=== PATIENT | female | born 2000 | race American Indian/Alaskan Native ===

== ENCOUNTER 2020-04-07 09:46 | Inpatient (IN) | payer OTHER ==
[2020-04-07] MEDS ORDERED: NalbUPHINE 10 MG/1 ML INJ IV PRN (10:34)
[2020-04-07] MEDS ORDERED: PROMETHAZINE 25 MG TAB PO PRN (10:34)
[2020-04-07] MEDS ORDERED: NALOXONE 0.4 MG/1 ML INJ IV PRN ×2 (10:34→17:15)
[2020-04-07] MEDS ORDERED: ONDANSETRON 4 MG/2 ML INJ IV PRN (10:34)
[2020-04-07] MEDS ORDERED: PROMETHAZINE 25 MG RECT SUPP PR PRN (10:34)
[2020-04-07] MEDS ORDERED: diphenhydrAMINE 50 MG/ML VIAL IV PRN (10:34)
[2020-04-07] MEDS ORDERED: HYDROmorphone 1 MG/1 ML INJ IV PRN (10:34)
--- NOTE | 2020-04-07 10:35 | Anesthesia Day of Surgery ---
Anesthesia Day of Surgery - Day of Surgery Patient Examined: Yes Patient H&P Reviewed: Yes Patient is NPO: Yes Beta Blockers: No Cardiac Clearance: No Pulmonary Clearance: No Davis's Test: N/A
--- NOTE | 2020-04-07 10:36 | Anesthesia Consultation ---
Anesthesia Consult and Med Hx Date of service: 04/07/20 - Airway Anesthetic Teeth Evaluation: Good ROM Head & Neck: Adequate Mental/Hyoid Distance: Adequate Mallampati Class: Class II Intubation Access Assessment: Probably Good - Pulmonary Exam CTA: Yes - Cardiac Exam Cardiac Exam: RRR - Pre-Operative Health Status ASA Pre-Surgery Classification: ASA2 Proposed Anesthetic Plan: Spinal Nerve Block: TAP - Pulmonary Hx Smoking: No Hx Sleep Apnea: No - Cardiovascular System Hx Hypertension: No Hx Heart Attack/AMI: No Hx Angina: No - Gastrointestinal Hx Gastroesophageal Reflux Disease: No - Endocrine Hx Insulin Dependent Diabetes: No Hx Non-Insulin Dependent Diabetes: No - Other Systems Hx Alcohol Use: No Hx Substance Use: No
[2020-04-07] MEDS ORDERED: BUPIVACAINE /DEX-WATER 0.75% (2 ML) AMPULE INFILTRATI ONE (10:38)
[2020-04-07] MEDS ORDERED: BUPIVACAINE/PF (0.5%) 5 MG/1 ML 30 ML VIAL INFILTRATI ONE (10:38)
[2020-04-07] MEDS ORDERED: dexAMETHasone 20 MG/5 ML VIAL ONE (10:38)
[2020-04-07] MEDS ORDERED: KETOROLAC 30 MG/1 ML INJ ONE (10:38)
[2020-04-07] MEDS ORDERED: OXYTOCIN DRIP 30,000 MILLIUNITS/500 ML BAG IV ONE (11:10)
[2020-04-07] MEDS ORDERED: LACTATED RINGERS 2,000 ML ONE (11:10)
[2020-04-07] MEDS ORDERED: BICITRA ORAL LIQD 30ML PO ONE (11:23)
[2020-04-07] MEDS ORDERED: METOCLOPRAMIDE 10 MG/2 ML INJ IV ONE (11:23)
[2020-04-07] MEDS ORDERED: FAMOTIDINE 20 MG/2 ML INJ IV ONE (11:23)
[2020-04-07] MEDS ORDERED: LACTATED RINGERS 1,000 ML IV SCH (11:30)
[2020-04-07 11:35] LABS: Basophils % (Auto) 0.2 % (0.0-1.8); Eosinophils % (Auto) 0.4 % (0.0-4.3); Hematocrit 35.5 % (30.3-42.9); Hemoglobin 11.2 gm/dl (10.1-14.3); Lymphocytes # (Auto) 2.2 K/mm3 (1.2-5.4); Mean Corpuscular HGB Conc 32 % (30-34); Mean Corpuscular Volume 78 fl (79-97); Monocytes # (Auto) 0.6 K/mm3 (0.0-0.8); Monocytes % (Auto) 6.6 % (0.0-7.3); Platelet Count 193 K/mm3 (140-440); Red Blood Count 4.57 M/mm3 (3.65-5.03); Red Cell Distribution Width 17.4 % (13.2-15.2)
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
[2020-04-07] MEDS ORDERED: ceFAZolin/Water 2 GM/20 ML 2 GM/20 ML SYRINGE IV NR (12:00)
[2020-04-07] MEDS ORDERED: OXYTOCIN DRIP 30 UNITS/500 ML BAG IV SCH ×2 (12:00→17:15)
[2020-04-07] MEDS ORDERED: SODIUM CHLORIDE 0.9% IRR 1,500 ML BOTTLE IR ONE (12:55)
[2020-04-07] MEDS ORDERED: WATER FOR IRRIG STERILE 1,500 ML BOTTLE IR ONE (12:56)
[2020-04-07] MEDS ORDERED: ePHEDrine SULFATE 50 MG/1 ML INJ ONE (13:15)
[2020-04-07] MEDS ORDERED: PHENYLEPHRINE/NS 1,000 MCG/10 ML SYRINGE (OR USE) IV ONE (13:15)
[2020-04-07] MEDS ORDERED: fentaNYL 100 MCG/2 ML INJ ONE (13:27)
--- NOTE | 2020-04-07 14:43 | Procedure Note ---
OB Delivery Note - Delivery Date of Delivery: 04/07/20 Surgeon: TIA LO ([facility]) Estimated blood loss: other (900cc) - Section Preop diagnosis: repeat , other (thick keloid scar) section procedure: repeat low transverse, other (excision of keloid scar) Disposition: floor Complications: none Narrative: Date: 04/07/20 Surgeon: Tia Lo MD Preop Dx: Term at 39.1wks, previous section with undocumented thick keloid scar and pt desires removal of keloid scar Postop Dx: same Procedure : Repeat Low transverse section and excision of thick wide keloid scar Anesthesia: Spinal Intake: 1750 Output: 200cc clear urine EBL: 900cc After the risks, benefits and alternatives of procedure discussed, patient signed consents and was taken to the operating room. Pt was given spinal anesthesia. After same was adequate, patient was prepped and draped in the usual sterile fashion. Curtis catheter in place and draining clear urine. Pt was given prophylactic antibiotic per protocol and time out was done Pfannenstiel skin incision was made and taken sharply to the fascia and the incision extended using electrocautery. Superior edge of the fascia was grasped with yamil clamps and the rectus muscle using blunt dissection and also using electrocautery. Lower portion of the fascia also sharply. Rectus muscle in the midline and Peritoneal cavity entered bluntly and extended with good visualization of the bladder. The bladder flap was created sharply using metzenbaum scissors. Lower uterine segment then entered transversely and amniotic sac entered using allys clamps. Uterine incision extended using bandage scissors. Infant delivered, bulb suctioned, cord clamped and baby handed to waiting pediatricians. Placenta then delivered completely and uterine cavity cleared of all clots and debri. The uterus was not exteriorized and closed in 2 layers using 0-vicryl suture in a running locked fashion and then an additional layer of imbrication suture. Excellent hemostasis noted. The gutters were cleared of clots and debri and anterior peritoneum and rectus muscle closed using 0-vicryl suture in a continuous fashion. Rectus fascia was closed with 0-vicryl from left towards the right side in a continous fashion. Subcutaneous tissue copiously irrigated with normal saline. Attention was then turned to keloid scar and same excised in an ellipstical fashion, scar length was 12inches, minimal electocautery used only for active arterial bleed, subcutaneous tissues reapproximated with 3-0vicryl suture in a continuous loose fashion. Excellent hemostasis remains. The skin was closed with [3-0 monocryl] suture and steristrips placed with pressure dressing. Sponge, lap, instrument and needle counts x2 were normal. Patient tolerated the procedure well and was taken to recovery room stable. Findings: Viable female , APGARS 9/9 and weight 3115g. Normal uterus, tubes and ovaries. - Infant A at 1 minute: 9 at 5 minutes: 9 Gender: Female
--- NOTE | 2020-04-07 14:55 | Progress Note ---
Spinal Anesthesia Block - Spinal Anesthesia Block Start Time: 12:18 Stop Time: 12:30 Performed by:: MADISON FRAZIER Procedure: Spinal anesthesia block is being performed for [C/S]. H&P, labs have been reviewed. Patient's questions and concerns have been answered. Informed consent has been performed. Timeout has was performed. Patient in sitting position on side of bed. Sterile prep and drape was performed. 3 mL 1% lidocaine skin wheal at L [3]-L [4]. Needle introducer advanced. 25-gauge spinal needle advanced, [+] CSF [-] blood. [Marcaine 10.5mg and Precedex 5mcg] Spinal dose was given. All needles removed. Patient tolerated procedure well.
--- NOTE | 2020-04-07 14:55 | Progress Note ---
Regional Anesthesia Block - Regional Anesthesia Block Start Time: 14:35 Stop Time: 14:45 Performed By:: MADISON FRAZIER Procedure: Patient consented for TAP block for post surgical pain management. Patient identified, monitors placed, and time out performed. Mid axillary TAP identified bilaterally via ultrasound. Skin prepped bilaterally with [chlorhexidine] and [20g stimuplex] needle advanced to the TAP. 30ml [Marcaine 0.25% with 25mcg Pre cedex and Decadron 4mg] injected under ultrasound guidance on the [left] side. 30ml [Marcaine 0.25% with 25mcg Precedex and Decadron 4mg] injected under ultrasound guidance on the [right] side.
[2020-04-07] MEDS ORDERED: LANOLIN/ZINC/DIMETHICONE (LANSINOH) 7 GM TP PRN (17:15)
[2020-04-07] MEDS ORDERED: KETOROLAC 30 MG/1 ML INJ IV PRN (17:15)
[2020-04-07] MEDS ORDERED: ceFAZolin/NS 1 GM/50 ML 1 GM/50 ML BAG IV SCH (17:15)
[2020-04-07] MEDS ORDERED: MAGNESIUM HYDROXIDE (MOM) ORAL LIQD UDC PO PRN (17:15)
[2020-04-07] MEDS ORDERED: SENNOSIDES 8.6 MG TAB PO PRN (17:15)
[2020-04-07] MEDS ORDERED: WITCH HAZEL/ GLYCERIN PAD TP PRN (17:15)
[2020-04-07] MEDS ORDERED: D5W/LACTATED RINGERS 1,000 ML IV SCH (23:00)
[2020-04-08] MEDS: oxyCODONE /ACETAMINOPHEN 5-325MG TAB PO PRN ×3 (06:19→21:45)
[2020-04-08] MEDS: FERROUS SULFATE 325 MG TAB PO SCH (08:59)
[2020-04-08] MEDS: SIMETHICONE 80 MG CHEW TAB PO PRN ×2 (08:59→21:44)
[2020-04-08] MEDS: PRENATAL VIT27-FE FUMARATE-FOLIC ACID VIT TAB PO SCH (08:59)
[2020-04-08] MEDS: IBUPROFEN 800 MG TAB PO PRN ×2 (09:00→19:55)
[2020-04-08 10:38] LABS: Basophils % (Auto) 0.2 % (0.0-1.8); Eosinophils % (Auto) 0.1 % (0.0-4.3); Hematocrit 29.1 % (30.3-42.9); Hemoglobin 9.3 gm/dl (10.1-14.3); Lymphocytes # (Auto) 2.6 K/mm3 (1.2-5.4); Lymphocytes % (Auto) 17.6 % (13.4-35.0); Mean Corpuscular HGB Conc 32 % (30-34); Mean Corpuscular Volume 78 fl (79-97); Monocytes # (Auto) 1.1 K/mm3 (0.0-0.8); Monocytes % (Auto) 7.5 % (0.0-7.3); Platelet Count 197 K/mm3 (140-440); Red Blood Count 3.73 M/mm3 (3.65-5.03); Red Cell Distribution Width 17.4 % (13.2-15.2)
--- NOTE | 2020-04-08 10:51 | Post Anesthesia Evaluation ---
- Post Anesthesia Evaluation Patient Participated: Yes Airway Patent: Yes Stable Respiratory Function: Yes Nausea/Vomiting: No Temp > 96.8F: Yes Pain Manageable: Yes Adequeate Hydration: Yes Anesthesia Complications: No Block Receding Appropriately: Yes Patient on Ventilator: No
--- NOTE | 2020-04-08 10:59 | Progress Note ---
Assessment and Plan - Patient Problems (1) S/P repeat low transverse Current Visit: Yes Status: Acute Plan to address problem: Continue routine PP orders Keep dressing clean and dry, remove on POD#2 Anticipate d/c home in 24-48 hrs if stable (2) Anemia Current Visit: Yes Status: Acute Qualifiers: Anemia type: other cause Other causes of anemia: acute posthemorrhagic Qualified Code(s): D62 - Acute posthemorrhagic anemia Plan to address problem: Asymptomatic Subjective - Subjective Date of service: 04/08/20 Principal diagnosis: S/P repeat C/S and keloid removal; POD #1 Interval history: See admission H&P; OB operative summary and PP progress notes Patient reports: appetite normal, voiding normally, pain well controlled (with medications), flatus, ambulating normally, no bowel movement [place]: doing well, bottle feeding (and ) Objective - Vital Signs Latest vital signs: Vital Signs Temp Pulse Resp BP BP Pulse Ox 04/08/20 08:30 98.1 F 83 20 96/52 04/08/20 07:06 18 04/08/20 06:19 18 04/08/20 04:24 98.4 F 63 18 118/76 04/08/20 01:43 18 04/08/20 01:13 16 04/08/20 00:20 98.1 F 79 18 106/53 97 04/07/20 20:05 98.0 F 79 18 106/61 100 04/07/20 16:40 98.1 F 77 20 109/55 100 04/07/20 15:25 75 20 117/67 100 04/07/20 15:10 77 18 118/69 100 04/07/20 14:55 78 18 117/66 100 04/07/20 14:40 73 18 107/54 100 04/07/20 14:35 85 15 113/48 100 04/07/20 14:30 97.6 F 84 18 105/56 100 Intake and Output 04/07/20 04/08/20 04/08/20 23:59 07:59 15:59 Intake Total 240 320 Output Total 400 2600 400 Balance -160 -2600 -80 Intake: Oral 320 Tube Feeding 240 Output: Urine 400 2600 400 Indwelling Catheter 400 2000 Void 600 400 Other: Total, Intake Amount 240 320 Total, Output Amount 400 600 400 # Voids Void 1 2 - Exam Breasts: Present: normal Cardiovascular: Present: Regular rate Lungs: Present: Normal air movement Abdomen: Present: soft, tenderness Uterus: Present: firm, fundal height below umbilicus (U-2) Extremities: Present: normal Deep Tendon Reflex Grade: Normal +2 Incision: Present: dressed (no drainage or bleeding noted) - Labs Labs: Abnormal lab results 04/07/20 04/08/20 Range/Units 11:00 09:48 WBC 14.9 H (4.5-11.0) K/mm3 Hgb 9.3 L (10.1-14.3) gm/dl Hct 29.1 L D (30.3-42.9) % MCV 78 L 78 L (79-97) fl MCH 25 L 25 L (28-32) pg RDW 17.4 H 17.4 H (13.2-15.2) % Gillespie % (Auto) 7.5 H (0.0-7.3) % Gillespie # (Auto) 1.1 H (0.0-0.8) K/mm3 Seg Neutrophils % 70.8 H 74.6 H (40.0-70.0) % Seg Neutrophils # 11.1 H (1.8-7.7) K/mm3
[2020-04-09] MEDS: oxyCODONE /ACETAMINOPHEN 5-325MG TAB PO PRN ×3 (03:37→20:06)
[2020-04-09] MEDS: IBUPROFEN 800 MG TAB PO PRN ×2 (05:33→18:35)
--- NOTE | 2020-04-09 11:05 | Progress Note ---
Assessment and Plan A: POD #2 Asymptomatic Anemia P: Follow Routine Orders Continue PO FeSO4 D/C Home in the AM RTO in one week Subjective - Subjective Date of service: 04/09/20 Principal diagnosis: S/P repeat C/S and keloid removal; POD #1 Patient reports: appetite normal, voiding normally, pain well controlled, flatus, ambulating normally [place]: doing well, bottle feeding (and ) Objective - Vital Signs Latest vital signs: Vital Signs Temp Pulse Resp BP BP Pulse Ox 04/09/20 08:15 98 F 89 18 102/55 100 04/09/20 00:46 97.9 F 86 20 99/42 98 04/08/20 15:25 98.6 F 79 20 108/40 04/08/20 12:54 98.1 F 84 20 101/53 Intake and Output 04/08/20 04/09/20 04/09/20 22:59 06:59 14:59 Intake Total 640 480 240 Output Total 900 Balance -260 480 240 Intake: Oral 640 240 Intake, Free Water 480 Output: Urine 900 Void 900 Other: Total, Intake Amount 320 240 Total, Output Amount 900 # Voids Void 2 1 - Exam Breasts: Present: normal Cardiovascular: Present: Regular rate Lungs: Present: Clear to auscultation, Normal air movement Abdomen: Present: normal appearance, soft, normal bowel sounds Uterus: Present: normal, firm, fundal height below umbilicus Extremities: Present: normal Incision: Present: normal, dry, intact
--- NOTE | 2020-04-09 11:07 | Discharge Summary ---
Providers - Providers Date of Admission: 04/07/20 09:47 Date of discharge: 04/10/20 Attending physician: SARAH LO 04/07/20 17:15 Consult to Extract Operator [CONS] Routine Reason For Exam: Primary care physician: SARAH LO Hospitalization Reason for admission: section Delivery: Procedure: repeat low transverse Episiotomy: none Laceration: none Incision: normal, dry, intact Other procedures: none complications: none Discharge diagnosis: IUP at term delivered baby: female Condition at discharge: Good Disposition: DC-01 TO HOME OR SELFCARE Plan - Discharge Medications Prescriptions: oxyCODONE /ACETAMINOPHEN [Percocet 5/325] 1 tab PO Q6HR PRN 21 Days #30 tablet PRN Reason: Pain - Provider Discharge Summary Activity: routine, no sex for 6 weeks, no heavy lifting 4 weeks, no strenuous exercise Diet: routine Instructions: routine Additional instructions: [] Smoking cessation referral if applicable(refer to patient education folder for contact #) [] Refer to [facility] Booklet Call your doctor immediately for: * Fever > 100.5 * Heavy vaginal bleeding ( >1 pad per hour) * Severe persistent headache * Shortness of breath * Reddened, hot, painful area to leg or breast * Drainage or odor from incision. * Keep incision clean and dry at all times and follow doctor's instructions regarding bathing/showering - Follow up plan Follow up: SARAH LO MD [Primary Care Provider] - 7 Days
[2020-04-09] MEDS: PRENATAL VIT27-FE FUMARATE-FOLIC ACID VIT TAB PO SCH (11:16)
[2020-04-09] MEDS: FERROUS SULFATE 325 MG TAB PO SCH (11:16)
[2020-04-09] MEDS: SIMETHICONE 80 MG CHEW TAB PO PRN (18:36)
[2020-04-10] MEDS: IBUPROFEN 800 MG TAB PO PRN ×2 (00:19→11:26)
[2020-04-10 08:28] VITALS: BP 110/64
[2020-04-10] MEDS: FERROUS SULFATE 325 MG TAB PO SCH (11:26)
[2020-04-10] MEDS: PRENATAL VIT27-FE FUMARATE-FOLIC ACID VIT TAB PO SCH (11:26)
== END 2020-04-10 13:45 | disposition home or self-care (01) | DRG 765 ==
LOC: APU 09:47 → OB 16:20
PROVIDERS: ADMIT Obstetrics & Gynecology; ATTEND Obstetrics & Gynecology
PROC: 10D00Z1 Extraction of Products of Conception, Low, Open Approach (ICD-10-PCS; principal; 2020-04-07)
PROC: 0HB7XZZ Excision of Abdomen Skin, External Approach (ICD-10-PCS; 2020-04-07)
PROC: 3E0R3BZ Introduction of Anesthetic Agent into Spinal Canal, Percutaneous Approach (ICD-10-PCS; 2020-04-07)
DX: O34.211 Maternal care for low transverse scar from previous cesarean delivery (principal); D62 Acute posthemorrhagic anemia; N85.8 Other specified noninflammatory disorders of uterus; O99.02 Anemia complicating childbirth; Z20.822 Contact with and (suspected) exposure to COVID-19; Z3A.39 39 weeks gestation of pregnancy; Z37.0 Single live birth
CPT/HCPCS: 36415; 85025; 86850; 86900; 86901; G0378; J0690; J1100; J1885; J2370; J2765; J3010; J3490; J7120; J7121; U0003